=== PATIENT | female | born 1990 | race Two or more races ===

== ENCOUNTER 2020-12-15 16:41 | Emergency (ER) | payer MEDICAID, SELFPAY ==
--- NOTE | ~2020-12-15 | XR_ITS ---
EXAMINATION: XR CHEST CLINICAL INFORMATION: Chest pain. COMPARISON: None TECHNIQUE: AP view of the chest was obtained. FINDINGS: Normal appearance of the cardiomediastinal silhouette. No focal airspace opacities, pleural effusions or pneumothorax. No acute osseous findings. XR/XR chest 1V IMPRESSION: No acute cardiopulmonary findings.
--- NOTE | 2020-12-15 16:53 | ECG_ITS ---
Test Reason : CHESTPRESS Blood Pressure : / mmHG Vent. Rate : 073 BPM Atrial Rate : 073 BPM P-R Int : 168 ms QRS Dur : 082 ms QT Int : 374 ms P-R-T Axes : 045 031 025 degrees QTc Int : 412 ms Normal sinus rhythm with sinus arrhythmia Normal ECG No previous ECGs available Referred By: Generic ED Physician Electronically Signed By:MARIA A COTTO
[2020-12-15 18:10] LABS: COVID-19 Test Negative (Negative)
[2020-12-15 18:27] VITALS: BP 122/62; PULSE 72; RESP 16; TEMP 36; O2SAT 98
[2020-12-15 18:28] VITALS: BMI 33.3
--- NOTE | 2020-12-15 18:40 | ED_ITS ---
HPI - URI/Sore Throat General Chief Complaint: Upper Respiratory Symptoms Stated Complaint: cp Time Seen by Provider: 12/15/20 18:40 History of Present Illness HPI Narrative: Patient is 30 years old presents today with having coughing congestion upper respiratory symptoms that been ongoing for about 5 days. Coughing with some mild chest pain worse with cough. Worse with movement. There is no diaphoresis. No leg swelling. Patient received her COVID vaccine back in July. Had 2 shots. No smoking. No diaphoresis. Patient from home. No weight loss. Related Data Previous Rx's Medication Instructions Recorded azithromycin 250 mg tablet See Rx Instructions .ROUTE 12/15/20 .COMPLEX #6 tab benzonatate 100 mg capsule 100 mg PO TID #20 cap 12/15/20 (Tesbrent Alonso) Allergies Allergy/AdvReac Type Severity Reaction Status Date / Time fluconazole [From Diflucan] Allergy Swelling Verified 12/15/20 18:27 Review of Systems Review of Systems: Positive coughing congestion upper respiratory symptoms Positive generalized malaise Yes all other systems are reviewed and are neg ative [facility] Past Medical History Attestation statement: The following information was validated with the patient. Social History Social History Advance Directives: No Advance Directives Information Provided: No Patient : No Physical Exam Vital Signs: Vital Signs: Last Vital Signs Temp 96.8 F 12/15/20 18:27 Pulse 72 12/15/20 18:27 Resp 16 12/15/20 18:27 BP 122/62 12/15/20 18:27 Pulse Ox 98 12/15/20 18:27 Body Mass Index 33.3 Appearance: Alert. Oriented X3. No acute distress. Eyes: Pupils equal, round and reactive to light. ENT: Pharynx normal. Neck: Normal inspection. Neck supple. No lymph nodes noted. No crepitus CVS: Normal heart rate and rhythm. Pulses normal. Normal S1 and S2 Respiratory: No respiratory distress. Breath sounds normal. No Wheezing. No rales Abdomen: Soft and nontender. No rigidity. No distention. good BS x4 Skin: Skin warm and dry. Normal skin color. Normal skin turgor. Extremities: No lower extremity edema. Neurovascular intact to all extremities. No Lacerations. No Rash Neuro: Oriented X 3. No motor deficit. No sensory deficit. Moving all extermities. No slurred speech MDM - URI/Sore Throat MDM Narrative Medical decision making narrative: O2 sats normal patient is well appearing no distress. Chest x-ray showed no focal infiltrate. COVID test was negative. Will give a Z-Chuckie will have patient follow-up on an outpatient basis. She is in stable condition. Medical Records Attestation: I reviewed the patient's medical records. Lab Data Attestation: I reviewed the patient's lab results. Labs: Lab Results 12/15/20 Range/Units 17:51 COVID-19 (ANGELA) Negative (Negative) COVID-19 Clin Com See Note Discharge Plan Discharge Clinical Impression: Upper respiratory infection Patient Disposition: Home, Self-Care Instructions: Upper Respiratory Infection (ED) Prescriptions: New azithromycin 250 mg tablet See Rx Instructions .ROUTE .COMPLEX Qty: 6 RF: 0 benzonatate [Tessalon Perles] 100 mg capsule 100 mg PO TID Qty: 20 RF: 0 Referrals: Lisseth Arora MD [Primary Care Provider] - 2 days
== END 2020-12-15 19:00 | disposition home or self-care (01) ==
PROVIDERS: Emergency Provider Emergency Medicine Emergency Medical Services; PCP Internal Medicine
DX: J06.9 Acute upper respiratory infection, unspecified (principal); R05.9 Cough, unspecified; Z20.822 Contact with and (suspected) exposure to COVID-19
CPT/HCPCS: 36415; 71045; 87635; 93005; 99283

== ENCOUNTER 2024-12-31 02:41 | Emergency (ER) | payer MEDICAID, SELFPAY ==
--- NOTE | 2024-12-31 | ECG_ITS ---
Test Reason : CP Blood Pressure : */* mmHG Vent. Rate : 62 BPM Atrial Rate : 62 BPM P-R Int : 170 ms QRS Dur : 86 ms QT Int : 396 ms P-R-T Axes : 50 39 36 degrees QTcB Int : 401 ms Normal sinus rhythm Normal ECG When compared with ECG of 15-Dec-2020 17:21, No significant change was found Referred By: Generic ED Physician Electronically Signed By: Maximiliano Carrillo
--- NOTE | ~2024-12-31 | XR_ITS ---
CLINICAL HISTORY: SOB 1 view chest x-ray Comparison: None provided Findings: Portions of the exam are obscured by overlying material. No consolidation or effusion. Normal size heart. No acute fracture. IMPRESSION: 1. No acute findings. This document has been electronically signed by: Jalen Reyes MD on 12/31/2024 03:52:26
[2024-12-31 02:46] VITALS: BMI 32.6
--- OUTSIDE RECORDS SUMMARY | 2024-12-31 02:52 | XMS_ITS ---
[facility] Name [facility] Organization Unknown Results Test Name/Text Value Interpretation Date Range Source Potassium SerPl-sCnc 4.2 mmol/L 10/03/2024 3.5 - 5.1 [facility] BUN SerPl-mCnc 17.0 mg/dL 10/03/2024 7 - 17 [facility]_ [facility] Glucose SerPl-mCnc 87.0 mg/dL 10/03/2024 70 - 99 [facility] Chloride SerPl-sCnc 106.0 mmol/L 10/03/2024 98 - 1 07 [facility] eGFRcr SerPlBld CKD-EPI 2020 76.0 mL/min/1.73m2 10/03/2024 - [facility] Creat SerPl-mCnc 1.0 mg/dL 10/03/2024 0.5 - 1 CT _[facility] BUN/Creat SerPl 17.0 10/03/2024 12 - 20 [facility] Sodium SerPl-sCnc 138.0 mmol/L 10/03/2024 135 - 14 5 [facility] CO2 SerPl-sCnc 25.0 mmol/L 10/03/2024 24 - 32 CT _[facility] Anion Gap SerPl Calc-sCnc 7.0 10/03/2024 5 - 14 [facility] Calcium SerPl-mCnc 9.2 mg/dL 10/03/2024 8.4 - 10.2 [facility] Est. average glucose Bld gHb Est-mCnc 111.0 mg/dL 07/21/2024 [facility] HbA1c MFr Bld 5.5 % 07/21/2024 - 5.7 [facility] VLDLc SerPl Calc-mCnc 16.8 mg/dL 07/21/2024 [facility] LDLc SerPl Calc-mCnc 81.0 mg/dL 07/21/2024 50 - 130 [facility] HDLc SerPl-mCnc 42.0 mg/dL 07/21/2024 35 - 80 CT _[facility] Trigl SerPl-mCnc 84.0 mg/dL 07/21/2024 - 150 C T_[facility] Cholest SerPl-mCnc 140.0 mg/dL 07/21/2024 0 - 200 [facility] eGFRcr SerPlBld CKD-EPI 2020 69.0 mL/min/1.73m2 07/21/2024 - [facility] Prot SerPl-mCnc 7.0 g/dL 07/21/2024 6.4 - 8.5 CT_ [facility] BUN/Creat SerPl 15.5 07/21/2024 12 - 20 [facility] Bilirub SerPl-mCnc 0.3 mg/dL 07/21/2024 0.3 - 1 [facility] CO2 SerPl-sCnc 26.0 mmol/L 07/21/2024 24 - 32 CT _[facility] ALT SerPl-cCnc 16.0 unit/L 07/21/2024 7 - 52 CT _[facility] Albumin SerPl-mCnc 4.0 g/dL 07/21/2024 3.5 - 5 [facility] AST SerPl-cCnc 16.0 unit/L 07/21/2024 5 - 40 CT _[facility] Glucose SerPl-mCnc 92.0 mg/dL 07/21/2024 70 - 99 [facility] Potassium SerPl-sCnc 3.9 mmol/L 07/21/2024 3.5 - 5.1 [facility] Sodium SerPl-sCnc 137.0 mmol/L 07/21/2024 135 - 14 5 [facility] BUN SerPl-mCnc 17.0 mg/dL 07/21/2024 7 - 17 [facility]_ [facility] Calcium SerPl-mCnc 9.0 mg/dL 07/21/2024 8.4 - 10.2 [facility] Chloride SerPl-sCnc 104.0 mmol/L 07/21/2024 98 - 1 07 [facility] Anion Gap SerPl Calc-sCnc 7.0 07/21/2024 5 - 14 [facility] Creat SerPl-mCnc 1.1 mg/dL Above high normal 07/21/2024 0.5 - 1 [facility] ALP SerPl-cCnc 79.0 unit/L 07/21/2024 34 - 104 CT _[facility] Hgb Bld-mCnc 14.2 g/dL 07/21/2024 12.5 - 16 [facility] ESHA RBC # Bld Auto 4.87 M/mcL 07/21/2024 4.2 - 5.4 CT_ [facility] Basophils # Bld Auto 0.0 K/mcL 07/21/2024 0 - 0.2 [facility] Basophils NFr Bld Auto 0.3 % 07/21/2024 0 - 2 [facility] Neutrophils NFr Bld Auto 55.7 % 07/21/2024 44 - 74 [facility] Eosinophil # Bld Auto 0.1 K/mcL 07/21/2024 0 - 0.5 [facility] Hct VFr Bld Auto 43.3 % 07/21/2024 37 - 47 CT _[facility] MCHC RBC Auto-EntMCnc 32.9 g/dL 07/21/2024 32 - 36 [facility] Eosinophil NFr Bld Auto 1.0 % 07/21/2024 0 - 6 [facility] Platelet # Bld Auto 208.0 K/mcL 07/21/2024 150 - 4 50 [facility] RDW RBC Auto 14.1 % 07/21/2024 12.1 - 16.2 [facility] Monocytes NFr Bld Auto 10.4 % 07/21/2024 2 - 12 [facility] Lymphocytes NFr Bld Auto 32.6 % 07/21/2024 20 - 48 [facility] Neutrophils # Bld Auto 3.6 K/mcL 07/21/2024 1.8 - 7.8 [facility] Lymphocytes # Bld Auto 2.1 K/mcL 07/21/2024 1 - 3.2 [facility] MCH RBC Qn Auto 29.2 pcg 07/21/2024 25 - 33 [facility]_ [facility] PMV Bld Auto 9.3 FL 07/21/2024 7.4 - 11.4 [facility] Monocytes # Bld Auto 0.7 K/mcL 07/21/2024 0 - 0.8 [facility] RBC Auto 88.8 FL 07/21/2024 78 - 100 [facility] N WBC # Bld Auto 6.4 K/mcL 07/21/2024 4 - 10.5 CT_T [facility] Color Ur Yellow 07/20/2024 - [facility] N Hgb Ur Ql Negative 07/20/2024 - [facility] N Clarity Ur Clear 07/20/2024 - [facility] AN Leukocyte esterase Ur Ql Strip Negative 07/20/2024 - [facility] Sp Gr Ur 1.024 07/20/2024 1.005 - 1.03 [facility] Prot Ur Strip-mCnc Negative 07/20/2024 - [facility] Glucose Ur Ql Negative 07/20/2024 - [facility] pH Ur 5.0 pH Abnormal 07/20/2024 5 - 8 [facility] N Ketones Ur-mCnc Negative 07/20/2024 - CT_ [facility] Nitrite Ur Ql Negative 07/20/2024 - [facility] ALT SERPL CCNC 39.0 U/L Normal 06/01/2023 7 - 52 [facility] HCO3 SER SCNC 27.0 mmol/L Normal 06/01/2023 24 - 32 [facility] ANION GAP SERPL SCNC 8.0 mmol/L Normal 06/01/2023 5 - 14 [facility] BILIRUB SERPL MCNC 0.4 mg/dL Normal 06/01/2023 0.3 - 1 [facility] CREAT SERPL MCNC 0.9 mg/dL Normal 06/01/2023 0.5 - 1 CT [facility] ALP SERPL-CCNC 93.0 U/L Normal 06/01/2023 34 - 104 [facility] ALBUMIN SERPL BCG MCNC 4.5 g/dL Normal 06/01/2023 3.5 - 5 [facility] AST SERPL CCNC 30.0 U/L Normal 06/01/2023 5 - 40 [facility] BUN SERPL MCNC 17.0 mg/dL Normal 06/01/2023 7 - 17 [facility] POTASSIUM SERPL SCNC 3.9 mmol/L Normal 06/01/2023 3[facility]5 [facility] Glomerular filtration rate/1.73 sq M. predicted 88.0 Normal 06/01/2023 60 - [facility] GLUCOSE P FAST SERPL MCNC 93.0 mg/dL Normal 06/01/2023 70 - 99 [facility] CALCIUM SERPL MCNC 9.3 mg/dL Normal 06/01/2023 8.4 - 10.2 [facility] SODIUM SERPL SCNC 138.0 mmol/L Normal 06/01/2023 135 - 14 5 [facility] CHLORIDE SERPL SCNC 103.0 mmol/L Normal 06/01/2023 98 - 1 07 [facility] PROT SERPL MCNC 7.3 g/dL Normal 06/01/2023 6.4 - 8.5 [facility] DIFFERENTIAL TYPE AUTOMATED Normal 06/01/2023 C [facility] WBC NO. BLD AUTO 4.6 K/uL Normal 06/01/2023 4 - 10.5 CT [facility] MCV RBC AUTO 86.7 fL Normal 06/01/2023 78 - 100 [facility] H EOSINOPHIL NFR BLD AUTO 1.2 % Normal 06/01/2023 0 - 6 [facility] NEUTROPHILS NO. BLD AUTO 2.5 K/uL Normal 06/01/2023 1.8 - 7.8 [facility] HGB BLD MCNC 14.1 g/dL Normal 06/01/2023 12.5 - 16 CT[facility] H RDW RBC AUTO RTO 14.2 % Normal 06/01/2023 12.1 - 16.2 [facility] PMV BLD AUTO 9.5 fL Normal 06/01/2023 7.4 - 11.[address] MCH[facility] RBC AUTO MCNC 34.4 g/dL Normal 06/01/2023 32 - 36 [facility] BASOPHILS NFR BLD AUTO 0.3 % Normal 06/01/2023 0 - 2 [facility] EOSINOPHIL NO. BLD AUTO 0.1 K/uL Normal 06/01/2023 0 - 0.5 [facility] NEUTROPHILS NFR BLD AUTO 55.0 % Normal 06/01/2023 44 - 74 [facility] HCT VFR BLD AUTO 40.9 % Normal 06/01/2023 37 - 47 [facility] PLATELET NO. BLD AUTO 213.0 K/uL Normal 06/01/2023 150 - 450 [facility] MONOCYTES NO. BLD AUTO 0.4 K/uL Normal 06/01/2023 0 - 0.8 [facility] BASOPHILS IN BLOOD BY AUTOMATED COUNT 0.0 K/uL Normal 06/01/2023 0 - 0.2 [facility] MONOCYTES NFR BLD AUTO 7.7 % Normal 06/01/2023 2 - 12 [facility] LYMPHOCYTES NFR BLD AUTO 35.8 % Normal 06/01/2023 20 - 48 [facility] MCH RBC QN AUTO 29.8 pg Normal 06/01/2023 25 - 33 CTT HS LYMPHOCYTES NO. BLD AUTO 1.7 K/uL Normal 06/01/2023 1 - 3.2 [facility] RBC NO. BLD AUTO 4.72 M/uL Normal 06/01/2023 4.2 - 5.4 CT [facility] Hgb A1c MFr Bld HPLC 5.3 % Normal 06/01/2023 - 5.7 [facility] LDLc SerPl Calc-mCnc 106.0 mg/dL Normal 06/01/2023 50 - 130 [facility] CHOLEST SERPL-MCNC 170.0 mg/dL Normal 06/01/2023 0 - 200 [facility] TRIGL SERPL-MCNC 80.0 mg/dL Normal 06/01/2023 - 150 [facility] HDLC SERPL-MCNC 48.0 mg/dL Normal 06/01/2023 35 - [facility] of Medication Use Medication Directions Dispensed Refills Start Date End Date Status oxyBUTYnin (DITROPAN) 5 mg tablet Take 1 tablet (5 mg total) by mouth 1 (one) time each day. 5 active ondansetron (Zofran) 4 MG tablet Take 1 tablet (4 mg total) by mouth every 8 (eight) hours as needed for nausea. 4 active SUMAtriptan (Imitrex) 50 MG tablet Take 1 tablet (50 mg total) by mouth once as needed for migraine. Can take an additional 50 mg 2 hours later if headache has not improved. DO NOT EXCEED 100 mg in 24 hours 4 active ketorolac (TORADOL) injection 30 mg 4 10/24/19 24 completed metoCLOPRAMIDE (REGLAN) injection 10 mg 10 mg, Intravenous, Once, On 10/24/23 at 1730, For 1 dose, If administering IV push, dilute with 10 mL of NS give over 2 minutes. 4 10/24/19 24 completed diclofenac (VOLTAREN) 1 % topical gel Apply 1-2 g topically 2 times daily as needed. 4 active Diclofenac Sodium (Voltaren Arthritis Pain) 1 % GEL Apply 1-2 g topically 2 (two) times a day as needed. 4 active fluticasone (FloNASE) 50 mcg/spray nasal spray 1 spray into each nostril daily. 4 active loratadine-pseudoeph edrine (CLARITIN-D 12-hour) 5-120 MG per 12 hr tablet Take 1 tablet by mouth 2 (two) times a day. 4 active fluticasone (FLONASE) 50 MCG/ACT nasal spray SPRAY/APPLY 1 SPRAY IN EACH NOSTRIL DAILY. 3 active fluticasone (FLONASE) 50 MCG/ACT nasal spray SPRAY/APPLY 1 SPRAY IN EACH NOSTRIL DAILY. 3 active fluticasone propionate (FLONASE) 50 mcg/actuation nasal spray 1 spray. 3 active azelastine (ASTELIN) 0.1 % nasal spray spray or apply 2 sprays inside Nose 2 (two) times a day. Use in each nostril as directed 3 08/25/19 24 active azelastine (ASTELIN) 0.1 % nasal spray spray or apply 2 sprays inside Nose 2 (two) times a day. Use in each nostril as directed 3 08/25/19 24 active amoxicillin-clavulan ate (AUGMENTIN) 875-125 MG per tablet Take 1 tablet by mouth 2 (two) times a day. 3 11/21/19 25 active amoxicillin (AMOXIL) 500 MG capsule Take 1 capsule (500 mg total) by mouth 2 (two) times a day. 3 05/31/19 23 aborted PANTOprazole (PROTONIX) 40 MG EC tablet Take 40 mg by mouth daily. 3 03/25/19 24 active albuterol (PROAIR RESPICLICK) 108 (90 Base) MCG/ACT inhaler Inhale 4 (four) times a day as needed. 2 active predniSONE (DELTASONE) 20 MG tablet Take 2 tablets (40 mg total) by mouth daily. With food. 2 01/11/20 22 active cyclobenzaprine (FLEXERIL) 10 MG tablet Take 1 tablet (10 mg total) by mouth every night at bedtime as needed for muscle spasms (upper back pain). 2 06/01/19 24 active cyclobenzaprine (FLEXERIL) 10 MG tablet Take 1 tablet (10 mg total) by mouth every night at bedtime as needed for muscle spasms (upper back pain). 2 06/01/19 24 active cyclobenzaprine (FLEXERIL) 10 MG tablet Take 10 mg by mouth. 2 active ibuprofen (MOTRIN) 600 MG tablet Take 1 tablet by mouth 3 (three) times a day with meals. 2 active cyclobenzaprine (FLEXERIL) 10 mg tablet Take 1 tablet (10 mg total) by mouth. 1 active fluticasone propionateTake 2 spray(s) (nasal) 1 time per day for 30 days (2 sprays in each nostril, once each day)[id number] spension1 time per [id number] pps63hja/actuation 1 suspended TumericTakeNo date recordedNo form recordedNo frequency recordedNo route recordedNo set duration recordedNo set duration amount recordedactiveNo dosage strength recordedNo dosage strength units of measure recorded active magnesium oxide (MAG-OX) 400 MG tablet Take 400 mg by mouth. active ondansetron (ZOFRAN) 4 mg tablet Take 1 tablet (4 mg total) by mouth every 8 (eight) hours if needed for nausea or vomiting. active oxybutynin (DITROPAN) 5 mg tablet Take 5 mg by mouth. activ e potassium chloride (KLOR-CON M20) 20 mEq CR tablet Take 1 tablet (20 mEq total) by mouth 1 (one) time each day. Tablet may be swallowed whole (do not crush/chew/suck on) OR broken in half and each half swallowed separately OR dissolved (whole tablet) in ~4 ounces of water (allow ~2 minutes to dissolve, stir well and administer immediately). active riboflavin (VITAMIN B-2) 100 MG tablet Take 100 mg by mouth. active SUMAtriptan (IMITREX) 50 mg tablet Take 1 tablet (50 mg total) by mouth 1 (one) time if needed for migraine. May repeat dose once in 2 hours if no relief. Do not exceed 2 doses in 24 hours. active tirzepatide (MOUNJARO) 2.5 mg/0.5 mL pen-injector Inject 2.5 mg under the skin once a week. active tirzepatide 5 mg/0.2 mL syringe Inject under the skin. active TURMERIC ORAL Take 2,000 mg by mouth. active Allergies Allergen Reaction Severity Comment Documented Date Source Status DOXYCYCLINE UNKNOWN/PATIENT AND FAMILY UNABLE TO DEFINEOTHER (SEE COMMENTS) swollen lip 05/30/2022 [facility] active POLLEN EXTRACT HIVES 08/09/2020 [facility] active POLLEN EXTRACTS 08/09/2020 [facility] N active SEASONAL 08/09/2020 [facility] active FLUCONAZOLE SWELLINGSWELLINGSWELLING Swo llen lip 05/29/2015 [facility] active Problems Problem Status Onset Date Problem Type Date of Resolution Source Fibromyalgia active 2021-11-03 ProblemAct [facility] Nausea active EncounterDiagnosisAct [facility] COVID-19 active 2023-04-03 ProblemAct [facility] Periodic headache syndrome, not intractable active 2023-11-03 ProblemAct [facility] Acute bacterial sinusitis active EncounterDiagnosisAct [facility] Obesity (BMI 35.0-39.9 without comorbidity) active 2021-11-03 ProblemAct [facility] Migraine active 2015-05-29 ProblemAct [facility] Gastroesophageal reflux disease without esophagitis active 2022-03-24 ProblemAct [facility] Fatty liver active 2022-03-24 ProblemAct [facility] ESHA Achilles tendinitis of left lower extremity active 2023-07-14 ProblemAct [facility] Fibromyalgia active 2017-03-23 ProblemAct [facility] Hyperhidrosis active 2017-02-01 ProblemAct [facility] Upper back pain active 2021-11-[address] [facility] Elevated serum creatinine active 2024-10-03 ProblemAct [facility] Urinary frequency active 2024-08-14 ProblemAct [facility] Hemangioma of liver active 2022-03-24 ProblemAct [facility] Elevated antinuclear antibody (KRISTIN) level active 2017-02-02 ProblemAct [facility] RAN Immunizations Vaccine Date Source Lot Number Status Influenza Quadrivalent, 0.5m l, preservative free (Fluarix; FluLaval; Fluzone) ages 6mo and older (Afluria) 3yo and older 04/07/2022 [facility] [id number] completed PPD Test 07/29/2021 [facility] [id number] completed Kaizena SARS-CoV-2 COVID-19, mRNA, LNP-S, preservative free 04/07/2021 [facility] [id number] completed Influenza Quadravalent, MDCK , 0.5ml, preservative free (Flucelvax) 6mo and older 12/06/2020 [facility] [id number] completed Kaizena SARS-CoV-2 COVID-19, mRNA, LNP-S, preservative free 07/20/2020 [facility] [id number] completed Influenza Quadravalent, MDCK , 0.5ml, with preservative (Flucelvax) 6mo and older 01/08/2020 [facility] [id number] 0 completed Hepatitis B (Pediatric / Ado lescent) (inactive) 07/04/2018 [facility] [id number] completed Hepatitis B Pediatric (Enger ix B; Recombivax HB) to less than 20 yo 07/04/2018 [facility] 29[facility]7 completed Tdap Tetanus diptheria acell ular pertussis (Boostrix; Adacel) 7yo and older 02/11/2017 [facility] [id number] completed TB Skin Test (TST-PPD) 02/03/2017 [facility] co mpleted Hepatitis B (Viuqjwq-W-Rhwiw , Recombivax HB-Adult) 19yo and older 02/01/2017 [facility] [id number] complet ed HPV 9-valent (Gardisil) 9yo to less than 46yo 02/01/2017 [facility] [id number] completed PPD Test 02/01/2017 [facility] [id number] completed Measles 01/28/2017 [facility] completed MMR, measles mumps and rubel la Live (Priorix; M-M-R II) 12mo and older 01/28/2017 [facility] completed Mumps 01/28/2017 [facility] completed Rubella 01/28/2017 [facility] completed Varicella live (Varivax) 12mo and older 01/28/2017 [facility] RAN completed TB Skin Test (TST-PPD) 05/31/2015 [facility] co mpleted PPD Test 05/29/2015 [facility] [id number] completed HPV, Quadrivalent 11/18/2012 [facility] complet ed Encounters Encounter Type Encounter Reason Primary Diagnosis Location Date Ambulatory sinus congestion [facility] [employer] 11/09/2024 Ambulatory Follow-up Frequency of micturition [facility] [place] [place]03/2024 Ambulatory [facility] 08/14/2024 Ambulatory Annual Exam Encounter for ge neral adult medical examination without abnormal findings [facility] 07/20/2024 Ambulatory Encounter for screening for COVID-19 Encounter for screening for COVID-19 [employer] 10/24/2023 Ambulatory 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 12/23/2022 Ambulatory Chronic sinusiti s, unspecified [employer] 05/30/2022 Ambulatory Streptococcal pharyngitis [place] [facility] 04/18/2022 Ambulatory Obesity, unspecified [facility] 04/13/2022 Ambulatory Acute sinusitis, unspecified [place] [facility] [facility] 01/04/2022 Ambulatory COVID-19 [facility] [employer] 03/10/2021 Care Team Organization Name Specialty Phone Email Start Date End Da te [employer] Primary Care 11/09/2024 12/08/2024 [facility] 07/26/2024 [facility] Primary Care 07/20/2024 [facility] Primary [facility] 07/20/2024 [place] [facility] 07/13/2023 [facility] Primary Care 06/03/2023 [facility] Primary Care 06/01/2023 09/26/2024 [facility] Not Found Primary Care 04/04/2023 [facility] Primary Care 04/04/2023 09/24/2024 [facility]SOL Primary Care 03/16/2023 09/2 08/2024 [facility] Primary Care 03/16/202304/2023 [facility] 12/23/202206/16 [facility] 12/23/202212/23 [facility] 01/14/2022 [facility] PCP,No Primary Care 01/04/2022 12/08/2024 [facility] NO PCP Primary Care 01/04/2022 01/04/2022
--- OUTSIDE RECORDS SUMMARY | 2024-12-31 02:52 | XMS_ITS | Encounter Summary ---
Author Organization [facility] Address [address] [place] [address] Care Team Providers Care Back Shoe Worker Name Role Phone Sol Atwood MD Primary Care Provider [phone] Encounter Details Date Type Department Care Team (Late st Contact Info) Description 10/24/2023 Scanned Document [address] [place] [phone] Provider, Generic Social History Tobacco Use Types Packs/Day Years Used Date Smoking Tobacco: Never Smokeless Tobacco: Never Alcohol Use Standard Drinks/Week Comments Yes 0 (1 standard drink = 0.6 oz pur e alcohol) socially Comments Unknown Sex and Gender Information Value Date Recorded Sex Assigned at Not on file Legal Sex Female 5:09 PM EST Gender Identity Not on file Sexual Orientation Not on file documented as of this encounter Plan of Treatment Not on file documented as of this encounter Visit Diagnoses Not on filedocumented in this encounter Care Teams Back Shoe Worker Relationship Specialty Start Date End Date Sol Atwood MD PCP - General Family Medicine 03/16/23 documented as of this encounter
--- OUTSIDE RECORDS SUMMARY | 2024-12-31 02:52 | XMS_ITS | Encounter Summary ---
Author Organization [facility] Address [address] [place] [address] Care Team Providers Care Dust Collector Ore Crushing Name Role Phone Sol Atwood MD Primary Care Provider [phone] Encounter Details Date Type Department Care Team (Late st Contact Info) Description 10/24/2023 Scanned Document [address] [place] [phone] Provider, Generic Social History Tobacco Use [...] on filedocumented in this encounter Care Teams Dust Collector Ore Crushing Relationship Specialty Start Date End Date Sol Atwood MD PCP - General Family Medicine 03/16/23 documented as of this encounter
--- OUTSIDE RECORDS SUMMARY | 2024-12-31 02:52 | XMS_ITS | Clinical Summary ---
Author Organization [facility] Address [address] [place] [address] Care Team Providers Care Meter Record Clerk Name Role Phone Sol Atwood MD Primary Care Provider Unav ailable Allergies Active Allergy Reactions Criticality Noted Date Comments Doxycycline Other (See Comments) Medium 06/01/2021 swollen lip swollen lip Seasonal 08/09/2020 Medications Medication Sig Dispensed Refills Start Date End Date Status fluticasone (FLONASE) 50 MCG/ACT nasal spray SPRAY/APPLY 1 SPRAY IN EACH NOSTRIL DAILY. 16 mL 0 12/14/2022 Active cyclobenzaprine (FLEXERIL) 10 MG tablet Take 1 tablet (10 mg total) by mouth every night at bedtime as needed for muscle spasms (upper back pain). 30 tablet 0 06/01/2023 Active Diclofenac Sodium (Voltaren Arthritis Pain) 1 % GEL Apply 1-2 g topically 2 (two) times a day as needed. 50 g 1 07/14/2023 Active ondansetron (Zofran) 4 MG tablet Take 1 tablet (4 mg total) by mouth every 8 (eight) hours as needed for nausea. 30 tablet 0 11/03/2023 Active Active Problems Problem Noted Date Diagnosed Date Periodic headache syndrome, not intractable 10/14 Achilles tendinitis of left lower extremity 03/2023 Fatty liver 03/24/2022 Gastroesophageal reflux disease without esophagi tis 03/24/2022 Hemangioma of liver 03/24/2022 Fibromyalgia 11/03/2021 Upper back pain 11/03/2021 Obesity (BMI 35.0-39.9 without comorbidity) 10/14 Immunizations Name Administration Dates Next Due HPV 9 Valent 02/01/2017 HPV Quadrivalent 11/18/2012 Hepatitis B (Adult 3 dose)/( Adolescent 2 dose) Engerix 02/01/2017 Hepatitis B (Pediatric / Ado lescent) (inactive) 07/04/2018 Influenza Quad (Fluarix/Fluz one/FluLaval) 0.5mL (SD-IIV4) 04/07/2022 Influenza Quad (Flucelvax) 0 .5mL >6mon (ccIIV4) 12/06/2020 Influenza Quad (Flucelvax) 0 .5mL >6mon Vial (ccIIV4) 01/08/2020 MMR 01/28/2017 TB Skin Test (TST-PPD) 07/29/2021,02/03/2017, Tdap 02/11/2017 Varicella 01/28/2017 Family History Medical History Relation Name Comments Diabetes Father Cancer Maternal Aunt Breast CA Hypertension Mother Relation Name Status Comments Father Maternal Aunt Mother Social History Tobacco Use Types Packs/Day Years Used Date Smoking Tobacco: Never Smokeless Tobacco: Never Alcohol Use Standard Drinks/Week Comments Yes 0 (1 standard drink = 0.6 oz pur e alcohol) occasionally Sex and Gender Information Value Date Recorded Sex Assigned at Female 06/01/2021 10:07 PM EDT Gender Identity Female 06/01/2021 10:07 PM EDT Sexual Orientation Not on file Job Start Date Occupation Industry Not on file Not on file Not on file Last Filed Vital Signs Vital Sign Reading Time Taken Comments Blood Pressure 100/65 11/03/2023 8:33 AM EDT Pulse 67 11/03/2023 8:33 AM EDT Temperature 36.6 C (97.9 F) 11/03/2023 8:33 AM EDT Respiratory Rate 18 03/23/2022 4:28 PM EST Oxygen Saturation 98% 11/03/2023 8:33 AM EDT Inhaled Oxygen Concentration - - Weight 100.2 kg (221 lb) 11/03/2023 8:33 AM EDT Height 165.1 cm (5' 5 ) 07/14/2023 10:02 AM EDT Body Mass Index 36.78 07/14/2023 10:02 AM EDT Plan of Treatment Health Maintenance Due Date Last Done Comments Hepatitis C Screening 1991 Pneumococcal Vaccine (1 of 2 - PCV) 07/27/1997 Hepatitis B Vaccines (3 of 3 - 19+ 3-dose series) 08/29/2018 07/04/2018, 02/01/2017 BMI Counseling 04/07/2023 04/07/2022, 03/15, 01/12/2022, Additional history exists Depression Screening 07/13/2024 07/14/2023, 06/07/19 Preventative Health Evaluation 07/13/2024 07/14/2023, 07/08/2022, 07/08/2022 COVID-19 Vaccine (3 - 2024- season) 2024 04/07/2021, 07/20/2020 Influenza Vaccine (#1) 2024 , 12/06/2020, 01/08/2020 Cervical Cancer Screening (Pap Smear) 12/23/2025 12/23/2022 DTap / Tdap / Td (2 - Td or Tdap) 02/11/2027 02/11/2017 RSV Ped < 20 months Aged Out No longe r eligible based on patient's age to complete this topic Care Teams Meter Record Clerk Relationship Specialty Start Date End Date Sol Atwood MD PCP - General Internal Medicine 06/13/21
--- OUTSIDE RECORDS SUMMARY | 2024-12-31 02:52 | XMS_ITS | Clinical Summary ---
Author Organization [facility] Address [address] [place] [id number] Care Team Providers Care Making Department Preparer Name Role Phone Sol Atwood MD Primary Care Provider Allergies Active Allergy Reactions Criticality Noted Date Comments Fluconazole Rash/Dermatitis,Swelling Medium 05/29/2015 Swollen lip Other reaction(s): Rash/Dermatitis Swollen lip Swollen lip Pollen Extract Hives Medium 08/09/2020 Medications predniSONE (DELTASONE) 20 MG tabletIndication s:Acute non-recurrent sinusitis, unspecified location,Shortne ss of breath Take 2 tablets (40 mg total) by mouth daily. With food. 10 tablet 2 Active Additional Information Patient not taking.Reported on 11/09/2024 albuterol (PROAIR RESPICLICK) 108 (90 Base) MCG/ACT inhaler Inhale 4 (four) times a day as needed. 2 Active cyclobenzaprine (FLEXERIL) 10 MG tablet Take 10 mg by mouth. 2 Active ibuprofen (MOTRIN) 600 MG tablet Take 1 tablet by mouth 3 (three) times a day with meals. 2 Active magnesium oxide (MAG-OX) 400 MG tablet Take 400 mg by mouth. Active PANTOprazole (PROTONIX) 40 MG EC tablet Take 40 mg by mouth daily. 3 Active riboflavin (VITAMIN B-2) 100 MG tablet Take 100 mg by mouth. Active loratadine-pseud oephedrine (CLARITIN-D 12-hour) 5-120 MG per 12 hr tabletIndication s:Viral sinusitis Take 1 tablet by mouth 2 (two) times a day. 60 tablet 4 Active Additional Information Patient not taking.Reported on 11/09/2024 oxybutynin (DITROPAN) 5 mg tablet Take 5 mg by mouth. Active tirzepatide (MOUNJARO) 2.5 mg/0.5 mL pen-injector Inject 2.5 mg under the skin once a week. Active amoxicillin-clav ulanate (AUGMENTIN) 875-125 MG per tabletIndication s:Acute bacterial sinusitis Take 1 tablet by mouth 2 (two) times a day. 20 tablet Active fluticasone (FloNASE) 50 mcg/spray nasal sprayIndications :Acute bacterial sinusitis 1 spray into each nostril daily. 1 each Active Active Problems No known active problems Encounters Date Type Department Care Team Description 11/09/2024 6:50 PM EDT Office Visit [facility] [address] [place] [phone] Sorin Blackburn MD Raye-Mattero, Jennifer, PA-C Acute bacterial sinusitis (Primary Dx) 11/09/2024 Travel from Last 3 Months Social History Tobacco Use Types Packs/Day Years Used Date Smoking Tobacco: Never Smokeless Tobacco: Never Tobacco Cessation:Counseling Given: Not Answered Alcohol Use Standard Drinks/Week Comments Yes 0 (1 standard drink = 0.6 oz pur e alcohol) socially Comments Unknown Sex and Gender Information Value Date Recorded Sex Assigned at Not on file Legal Sex Female 5:09 PM EST Gender Identity Not on file Sexual Orientation Not on file Last Filed Vital Signs Vital Sign Reading Time Taken Comments Blood Pressure 110/76 11/09/2024 6:58 PM EDT Pulse 85 11/09/2024 6:58 PM EDT Temperature 37.2 C (98.9 F) 11/09/2024 6:58 PM EDT Respiratory Rate 18 11/09/2024 6:58 PM EDT Oxygen Saturation 98% 11/09/2024 6:58 PM EDT Inhaled Oxygen Concentration - - Weight 89.8 kg (198 lb) 11/09/2024 6:58 PM EDT Height 165.1 cm (5' 5 ) 11/09/2024 6:58 PM EDT Body Mass Index 32.95 11/09/2024 6:58 PM EDT Plan of Treatment Health Maintenance Due Date Last Done Comments Hepatitis C Virus Screening 1991 HIV Screening 07/27/2004 DTaP/Tdap/Td Vaccines (1 - Tdap) 07/27/2010 Hepatitis B Vaccines (1 of 3 - 19+ 3-dose series) 07/27/2010 Influenza Vaccine 10/13/2024 04/07/2022, 12/06/2020 COVID-19 Vaccine (3 - 2024-2 6 season) 2024 04/07/2021, 07/20/2020 Pap Smear (Ages 21-65) 12/23/2025 12/23/2022 HPV Vaccines (No Doses Required) Completed Pneumococcal Vaccine: Pediatric (0-5 Years) and At-Risk Patients (6 to 49 Years) Aged Out No longer eligible b ased on patient's age to complete this topic Procedures Procedure Name Priority Date/Time Associated Diagnosis Comments POCT RAPID COVID-19 AG (FDA EUA) Routine 11/09/2024 7:26 PM EDT Acute bacterial sinusitis THINPREP PAP(COST RECORDER) HPV SCR RFX HPV 16,18/45 Routine 12/23/2022 11:12 AM EDT from Last 3 Months or Most Recently Relevant to Health Maintenance Results * POCT Rapid COVID-19 Antigen (FDA EUA) (11/09/2024 7:26 PM EDT) COVID-19 Rapid Antigen, POC (FDA EUA) Negative Result Comments: A Positive Result does not rule out bacterial infection or co-infection with other viruses. Clinical correlation advised. A Negative Result in symptomatic patients should be considered presumptive and needs confirmation by PCR. Kit Lot Number [id number] Customer Energy Specialist Pass Pass Swab, Nasal Specimen from nose / Unknown 11/09/2024 7:26 PM EDT Inga Valdivia PA-C POINT OF CARE TEST OR DERABLES Final Result * ThinPrep Pap(Official Court Reporter) HPV Scr Rfx HPV 16,18/45 (12/23/2022 11:12 AM EDT) Report Report [facility] Comment: Final Gynecological Cytology Report ThinPrep Pap Test, HPV Screen, Reflex HPV Genotype SPECIMEN ADEQUACY: SATISFACTORY FOR EVALUATION; ENDOCERVICAL/TRANSFORMATION ZONE COMPONENT ABSENT/INSUFFICIENT . INTERPRETATION: NEGATIVE FOR INTRAEPITHELIAL LESION OR MALIGNANCY. Electronically Signed: Naila Moss CLINICAL INFORMATION: LMP: NG Clinical History: NG Biopsy Date: NG Specimen Source: Cervix, Endocervix Previous Pap Date: NG HPV RESULTS: HPV mRNA E6/E7 [id number] Approved: 12/25/22 Negative REF RANGE: Negative CPT Codes: 08064 ICD Codes: Z01.419 12/23/2022 11:1 2 AM EDT 12/24/2022 5:09 AM EDT Felix Crooks DO LAB AMB PATH/CYTO ORDERAB LES Final Result [facility] [address], [place] from Last 3 Months or Most Recently Relevant to Health Maintenance Insurance [facility] Care Teams Making Department Preparer Relationship Specialty Start Date End Date Sol Atwood MD PCP - General Family Medicine 03/16/23
--- OUTSIDE RECORDS SUMMARY | 2024-12-31 02:52 | XMS_ITS | Clinical Summary ---
Author Organization [facility] [address] Building Address [address] [place] [address] Phone Care Team Providers Care Athletics Teacher Name Role Phone Slo Atwood MD Primary Care Provider Allergies Active Allergy Reactions Criticality Noted Date Comments Fluconazole Rash,Swelling Medium 05/29/2015 Swollen lip Other reaction(s): Rash/Dermatitis Swollen lip Swollen lip Pollen Extracts 08/09/2020 Medications fluticasone propionate (FLONASE) 50 mcg/actuation nasal spray 1 spray. 12/15/19 23 Active diclofenac (VOLTAREN) 1 % topical gel Apply 1-2 g topically 2 times daily as needed. 07/14/19 24 Active cyclobenzaprin e (FLEXERIL) 10 mg tablet Take 1 tablet (10 mg total) by mouth. 10/08/19 21 Active ondansetron (ZOFRAN) 4 mg tablet Take 1 tablet (4 mg total) by mouth every 8 (eight) hours if needed for nausea or vomiting. Active TURMERIC ORAL Take 2,000 mg by mouth. Active tirzepatide 5 mg/0.2 mL syringe Inject under the skin. Active oxyBUTYnin (DITROPAN) 5 mg tablet TAKE 1 TABLET BY MOUTH 1 TIME EACH DAY. 90 tablet 1 12/15/19 25 Active oxyBUTYnin (DITROPAN) 5 mg tablet Take 1 tablet (5 mg total) by mouth 1 (one) time each day. 60 each 1 08/15/19 25 025 Discontinued Active Problems Problem Noted Date Diagnosed Date Elevated serum creatinine 10/03/2024 Urinary frequency 08/14/2024 Achilles tendinitis of left lower extremity 03/2023 Fatty liver 03/24/2022 Gastroesophageal reflux disease without esophagi tis 03/24/2022 Hemangioma of liver 03/24/2022 Obesity (BMI 35.0-39.9 without comorbidity) 10/14 Upper back pain 11/03/2021 Fibromyalgia 03/23/2017 Elevated antinuclear antibody (KRISTIN) level 2016 Overview (11/17/2023): Rheumatology consultation 03/09. No active inflammation seen ?fibromyalgia Hyperhidrosis 02/01/2017 Migraine 05/29/2015 Encounters Date Type Department Care Team Description 10/03/2024 8:30 AM EDT Office Visit [facility] [address] [place] [address] Sol Atwood MD Urinary frequency (Primary Dx); Elevated serum creatinine; Hepatic hemangioma from Last 3 Months Immunizations Immunization Administration Dates Next Due HPV 9-valent (Gardisil) 9yo to less than 46yo 02/01/2017 HPV, Quadrivalent 11/18/2012 Hepatitis B (Vsusqab-C-Bphro , Recombivax HB-Adult) 19yo and older 02/01/2017 Hepatitis B Pediatric (Enger ix B; Recombivax HB) to less than 20 yo 07/04/2018 Influenza Quadravalent, MDCK , 0.5ml, preservative free (Flucelvax) 6mo and older 12/06/2020 Influenza Quadravalent, MDCK , 0.5ml, with preservative (Flucelvax) 6mo and older 01/08/2020 Influenza Quadrivalent, 0.5m l, preservative free (Fluarix; FluLaval; Fluzone) ages 6mo and older (Afluria) 3yo and older 04/07/2022 MMR, measles mumps and rubel la Live (Priorix; M-M-R II) 12mo and older 01/28/2017 Measles 01/28/2017 Mumps 01/28/2017 PPD Test 07/29/2021,02/01/2017,05/29/2015 GutCheck SARS-CoV-2 COVID-19, mRNA, LNP-S, preservative free 04/07/2021,07/20/2020 Rubella 01/28/2017 Tdap Tetanus diptheria acell ular pertussis (Boostrix; Adacel) 7yo and older 02/11/2017 Varicella live (Varivax) 12mo and older 01/29/20 17 Surgical History Surgery Date Site/Laterality Comments SECTION PROCEDURE: SECTION SECTION PROCEDURE: SECTION Medical History Medical History Date Comments Anxiety DX:Anxiety Headache DX:Headache Fibromyalgia 2016 DX:Fibromyalgia Anxiety 2016 DX:Anxiety Family History Medical History Relation Name Comments Diabetes Father Hypertension Mother Cancer Mother's Sister Breast CA Relation Name Status Comments Father Mother Mother's Sister Social History Tobacco Use Types Packs/Day Years Used Date Smoking Tobacco: Never Smokeless Tobacco: Never Alcohol Use Standard Drinks/Week Comments Yes 0 (1 standard drink = 0.6 oz pur e alcohol) Housing Instability Answer Date Recorde d Are you worried that in the next 2 months you may not have stable housing? No 08/13/2024 Food Access & Nutrition Answer Date Rec orded Do you have access to a vari ety of food including fruits and vegetables? Yes 08/13/2024 Access to Healthcare Answer Date Record ed Within the last 3 months, ho w many times did you visit the emergency department for your medical care? 0 08/13/2024 Health Literacy Answer Date Recorded How often do you need to hav e someone help you when you read instructions, pamphlets, or other written material from your doctor or pharmacy? Rarely 08/13/2024 Caregiver: How often do you need to have someone help you when you read instructions, pamphlets, or other written material from your doctor or pharmacy? Not on file 08/13/2024 Financial Risk Answer Date Recorded How hard is it for you to pa y for the very basics like food, housing, medical care, and air conditioning / heating? Not very hard 08/13/2024 Transportation Answer Date Recorded Has the lack of transportati on kept you from meetings, work, or from getting things needed for daily living? No Has the lack of transportati on kept you from medical appointments or from getting medications? No 08/13/2024 Social Isolation Answer Date Recorded How often do you feel lonely or isolated from th ose around you? Rarely 08/13/2024 Food Risk Answer Date Recorded Within the past 12 months we worried whether our food would run out before we got money to buy more. Never true 08/13/2024 Within the past 12 months th e food we bought just didn't last and we didn't have money to get more. Never true 08/13/2024 Dependent Care Answer Date Recorded Do you need help finding or paying for care for your loved ones. For example, child day care teacher or elderly care for an older adult? No 08/13/2024 Education Answer Date Recorded Do you think completing more education or training, like finishing a GED, going to college, or learning a trade, would be helpful for you? No 08/13/2024 Employment and Income Answer Date Recor ded During the last four weeks, have you been actively looking for work? No 08/13/2024 Living Situation Answer Date Recorded What is your living situation? Unrecognized valu e 08/13/2024 Comments Unknown Sex and Gender Information Value Date Recorded Sex Assigned at Not on file Legal Sex Female 5:42 PM EST Gender Identity Not on file Sexual Orientation Not on file Obstetrics History Last Filed Vital Signs Vital Sign Reading Time Taken Comments Blood Pressure 104/64 10/03/2024 8:18 AM EDT manual blood pressure Pulse 61 10/03/2024 8:18 AM EDT Temperature 36.4 C (97.5 F) 10/03/2024 8:18 AM EDT Respiratory Rate - - Oxygen Saturation 98% 10/03/2024 8:1 8 AM EDT Inhaled Oxygen Concentration - - Weight 92.3 kg (203 lb 6.4 oz) 10/03/2024 8:18 AM EDT Height 165.1 cm (5' 5 ) 10/03/2024 8:18 AM EDT Body Mass Index 33.85 10/03/2024 8:18 AM EDT Plan of Treatment Upcoming Encounters Date Type Department Care Team (Late st Contact Info) Description 04/03/2025 3:30 PM EST Office Visit Internal Medicine - [facility] [address] [place] [phone] Sol Atwood MD [address] [place] [address] Health Maintenance Due Date Last Done Comments HPV Vaccines (3 - 3-dose series) 04/26/2017 02/01/2017, 11/18/2012 Hepatitis B Vaccines (2 of 3 - 19+ 3-dose series) 08/01/2018 07/04/2018, 02/01/2017 HIV Screening 02/14/2022 Hepatitis C Screening 02/14/2022 COVID-19 Vaccine (3 - 2024- season) 2024 04/07/2021, 07/20/2020 Influenza Vaccine (#1) 2024 , 12/06/2020, 01/08/2020 Social Influencers of Health Screening 08/13/2025 08/13/2024 DTaP,Tdap,and Td Vaccines (2 - Td or Tdap) 02/11/2027 02/11/2017 Cervical Cancer Screening: HPV 12/29/2027 12/28/2022 Cholesterol Screening (Lipid Panel) 07/21/2029 07/21/2024, 06/01/2023, 06/01/2023, Additional history exists RSV Immunization Adult Patients (1 - 1-dose 75+ series) 07/27/2066 MMR Vaccines Aged Out 01/28/2017 No longer eligi ble based on patient's age to complete this topic Varicella Vaccines Aged Out 01/28/2017 No longer eligible based on patient's age to complete this topic Depression Screening Completed 08/13/2024, 07/14/19 HIB Vaccines Aged Out No longer eligi ble based on patient's age to complete this topic Hepatitis A Vaccines Aged Out No long er eligible based on patient's age to complete this topic IPV Vaccines Aged Out No longer eligi ble based on patient's age to complete this topic Meningococcal ACWY Vaccine Aged Out N o longer eligible based on patient's age to complete this topic Meningococcal B Vaccine Aged Out No l onger eligible based on patient's age to complete this topic Pneumococcal Vaccine: Pediatrics (0 to 5 Years) and At-Risk Patients (6 to 49 Years) Aged Out No longer eligible based on patient's age to complete this topic RSV Immunization Patients Under 20 months Aged Out No longer eligible based on patient's age to complete this topic Procedures Procedure Name Priority Date/Time Associated Diagnosis Comments BASIC METABOLIC PANEL Routine 10/03/2024 9:04 AM EDT Elevated serum creatinine LIPID PANEL Routine 07/21/2024 10:18 AM EDT Encounter for routine adult health examination without abnormal findings HM DEPRESSION SCREENING Routine 07/14/2023 HM HPV Routine 12/28/2022 from Last 3 Months or Most Recently Relevant to Health Maintenance Results * Basic metabolic panel (10/03/2024 9:04 AM EDT) Pathologist [facility] Sodium 138 135 - 145 mmol/L LAB CHEMISTRY METHOD 10/03/2024 11:49 AM EDT [facility] Potassium 4.2 3.5 - 5.1 mmol/L LAB CHEMISTRY METHOD 10/03/2024 11:49 AM EDT [facility] Comment:Slightly to Moderate ly Hemolyzed Chloride 106 98 - 107 mmol/L LAB CHEMISTRY METHOD 10/03/2024 11:49 AM [facility] CO2 25 24 - 32 mmol/L LAB CHEMISTRY METHOD 10/03/2024 11:49 AM T [facility] Anion Gap 7 5 - 14 LAB CHEMISTRY METHOD 10/03/2024 11:49 AM [facility] Glucose 87 70 - 99 mg/dL LAB CHEMISTRY METHOD 10/03/2024 11:49 AM EDT [facility] BUN 17 7 - 17 mg/dL LAB CHEMISTRY METHOD 10/03/2024 11:49 AM EDT [facility] Creatinine 1.00 0.50 - 1.00 mg/dL LAB CHEMISTRY METHOD 10/03/2024 11:49 AM [facility] eGFR 76 >=60 mL/min/1. 73m2 LAB CHEMISTRY METHOD 10/03/2024 11:49 AM T [facility] Comment:Calculation based on the Chronic Kidney Disease Epidemiology Collaboration (CKD-EPI) equation refit without adjustment for race. BUN/Creatinine Ratio 17.0 12.0 - 20.0 LAB CHEMISTRY METHOD 10/03/2024 11:49 AM EDT [facility] Calcium 9.2 8.4 - 10.2 mg/dL LAB CHEMISTRY METHOD 10/03/2024 11:49 AM EDT [facility] Blood Venous blood specimen / Unknown Venipuncture / Unknown 10/03/2024 9:04 AM EDT 10/03/2024 9:10 AM EDT us Sol Atwood MD LAB BLOOD ORDERABLES Final Result [facility] [address] [place] [address], [place] [phone] * Lipid panel (07/21/2024 10:18 AM EDT) [facility] Signature Cholesterol 140 0 - 200 mg/dL LAB CHEMISTRY METHOD 07/21/2024 2:51 PM EDT [facility] Triglycerides 84 <150 mg/dL LAB CHEMISTRY METHOD 07/21/2024 2:51 PM EDT [facility] HDL 42 35 - 80 mg/dL LAB CHEMISTRY METHOD 07/21/2024 2:51 PM EDT [facility] LDL Calculated 81 50 - 130 mg/dL LAB CHEMISTRY METHOD 07/21/2024 2:51 PM EDT [facility] VLDL Cholesterol Ethan 16.8 mg/dL LAB CHEMISTRY METHOD 07/21/2024 2:51 PM EDT [facility] Comment:No established refer ence range. Blood Venous blood specimen / Unknown Venipuncture / Unknown 07/21/2024 10:18 AM EDT 07/21/2024 10:18 AM EDT us Sol Atwood MD LAB BLOOD ORDERABLES Final Result [facility] [address] [place] [address], [place] [phone] * Depression Screening (07/14/2023) Depression Screening Abstracted Historical Provider HEALTH MAINTENANCE Final Result * Cervical Cancer Screening: HPV (12/28/2022) Cervical Cancer Screening: HPV No interpreta tion,abstr acted Historical Provider HEALTH MAINTENANCE Final Result from Last 3 Months or Most Recently Relevant to Health Maintenance Insurance MEDICAID - [place] Care Teams Athletics Teacher Relationship Specialty Start Date End Date Sol Atwood MD [address] [place] [address] PCP - General 06/13/21
--- OUTSIDE RECORDS SUMMARY | 2024-12-31 02:52 | XMS_ITS | Data Portability ---
Author Organization [place] - [facility], [facility] Address [address] [place] [address] Care Team Providers Care Credit Risk Modeler Name Role Phone YEE PEARCE Primary Care Provider Assessment No assessment recorded. Plan of Treatment Reminders Order Date Submit Date Provider Last Modified By Organization Details Last Modified Time Details Appointments None record ed. Lab pap, IG + HPV 023 12/24/19 [facility], [address] [place], [address] 3 17:50:02 Referral None record ed. Procedures None record ed. Surgeries None record ed. Imaging None record ed. Medication Orders None record ed. Patient TargetsNo targets recorded. Patient Instructions Encounter Date Encounter Id Patient Instructions Last Modified By Organization Details Last Modified Time 12/23/2022 [id number] tips to help you stay healthy [email or web address] Not available 12/23/2022 11:19:16 [facility] screening completed and reviewed with patient. Negative findings. [email or web address] Not available 12/23/2022 11:34:06 Reason for Referral None Reported. Results Created Date Observation Date Name Description Value Unit Range Abnormal Flag Note LastModifiedBy Organization Detail LastModifiedTime 12/24/19 23 12/23/2022 THINP REP PAP TEST (IMAG ER), HPV SCREE N, REFLE X HPV 16,18 /45 report Report Final Gynec ologi sarmad Cytol ogy Repor t ----- ----- ----- ----- ----- ----- ----- ----- ----- ----- ----- ----- ThinP rep Pap Test, HPV Scree n, Refle x HPV Genot ype SPECI MEN ADEQU ACY: SATIS FACTO RY FOR EVALU ATION ; ENDOC ERVIC AL/TR ANSFO RMATI ON ZONE COMPO NENT ABSEN T/INS [facility] IENT . INTER PRETA TION: NEGAT DOROTHY FOR INTRA EPITH ELIAL LESIO N OR LUIS MTITO PURCELL . Elect ashwini Burris d: Naila Arnold ----- ----- ----- ----- ----- ----- ----- ----- ----- ----- ----- ----- CLINI SARMAD INFOR MATIO N: LMP: NG Clini sarmad Histo ry: NG Biops y Date: NG Speci men Sourc e: Cervi x, Endoc ervix Previ ous Pap Date: NG HPV RESUL TS: HPV mRNA E6/E7 [id number] Appro kenny: 12/25 Negat dorothy REF RANGE : Negat dorothy CPT Codes : 40446 ICD Codes : Z01.4 19 Not Available [facility] [address], [place], [facility] [place] 12/28/2022 17:50:02 12/24/1912/23/2022 HPV MRNA E6/E7 HPV MRNA E6/E7 Negati ve negati ve APTIM A HPV assay detec ts 14 high risk HPV types (HPV 16,18 ,31,3 3,35, 39,45 ,51,5 2,56, 58,59 ,66,6 8). The assay is FDA appro kenny for testi ng ThinP rep liqui d Pap vials but not FDA appro kenny for detec ting HPV in SureP ath liqui d Pap speci mens. In-ho use valid ation has shown the assay can detec t all HPV types from this sour e Not Available [facility] [address] [place], [address] 12/28/2022 17:50:05 Result Notes None recorded. Medical Equipment None Reported. Allergies Allergen ID Allergen Name Allergen Category Reaction Reaction Severity Criticality Documentation Date Start Date Code Code System Note Provider Name and Address Organization Details Recorded Time [id number] Diflucan medicatio n Not available Not available Not available 12/23/2022 3 RxNorm Lilian Millan null, [place] - [facility] 3 11:09:12 Medications Name Sig Start Date Stop Date Status Note LastModified by Organization Details LastModified Time amoxicillin 500 mg capsule TAKE 1 CAPSULE BY MOUTH TWICE A DAY 12/23 completed Not Available Not Available Not Available azithromyci n 250 mg tablet TAKE 2 TABLETS BY MOUTH TODAY, THEN TAKE 1 TABLET DAILY FOR 4 DAYS 12/23 completed Not Available Not Available Not Available prednisone 20 mg tablet TAKE 2 TABLETS BY MOUTH EVERY DAY WITH FOOD 12/23 completed Not Available Not Available Not Available ofloxacin 0.3 % ear drops PLACE 10 DROPS INTO THE LEFT EAR 2 (TWO) TIMES A DAY. 12/23 completed Not Available Not Available Not Available pantoprazol e 40 mg tablet,emmett yed release TAKE 1 TABLET BY MOUTH EVERY DAY 12/23 completed Not Available Not Available Not Available montelukast 10 mg tablet TAKE 1 TABLET BY MOUTH DAILY FOR 7 DAYS 12/23 completed Not Available Not Available Not Available azelastine 137 mcg (0.1 %) nasal spray SPRAY OR APPLY 2 SPRAYS INSIDE NOSE 2 (TWO) TIMES A DAY. USE IN EACH NOSTRIL DIRECTED 12/23 completed Not Available Not Available Not Available levofloxaci n 750 mg tablet TAKE 1 TABLET BY MOUTH EVERY DAY FOR 7 DAYS 12/23 completed Not Available Not Available Not Available fluticasone propionate 50 mcg/actuati on nasal spray,suspe nsion SPRAY/MARISELA LY 1 SPRAY IN EACH NOSTRIL DAILY. active Not Available Not Available No t Available amoxicillin 875 mg-potassiu m clavulanate 125 mg tablet TAKE 1 TABLET BY MOUTH TWICE A DAY 12/23 completed Not Available Not Available Not Available Ventolin HFA 90 mcg/actuati on aerosol inhaler INHALE 2 INHALATIO NS INTO THE LUNGS 4 (FOUR) TIMES A DAY NEEDED. 12/23 completed Not Available Not Available Not Available Vitals Date Recorded Body height Body mass index (BMI) Body weight Systolic And Diastolic Provider Name and Address Organization Details Last Updated DateTime 12/23/2022 165.1 cm 34.9 kg/m2 74450.4 g 110/80 mm[Hg] Lilian Millan [place] [facility] 12/23/2022 11:08:16 Social History Question Answer Notes LastModified by Organizat ion Details LastModified Time In The 14 Days Before Symptom Onset, Have You Had Close Contact With A Laboratory-confirmed COVID-19 While That Case Was Ill? No [email or web address] Information not available 12/23/2022 In The 14 Days Before Symptom Onset, Have You Had Close Contact With A Person Who Is Under Investigation For COVID-19 While That Person Was Ill? No Information not available 12/23/2022 Have You Been To An Area Known To Be High Risk For COVID-19? No [email or web address] Information not available 12/23/2022 Do You Reside In Or Have You Traveled To An Area Where Ebola Virus Transmission Is Active? No [email or web address] Information not available 12/23/2022 Have You Recently Or Are You Planning To Travel To An Area With Zika Virus? No [email or web address] Information not available 12/23/2022 Do You Have Any Children? Yes [email or web address] Information not available 12/23/2022 Does Your Partner Physically Hurt You Or Threaten To Hurt You? No [email or web address] Information not available 12/23/2022 Has Your Partner Forced You To Have Sex Or Perform Sex Acts When You Did Not Want To? No [email or web address] Information not available 12/23/2022 Does Your Partner Insult, Scream At Or Talk Down To You? No Information no t available 12/23/2022 Does Your Partner Control You Or Any Part Of Your Life? No Information n ot available 12/23/2022 Are You Afraid Of Your Partner? No [email or web address] Information not available 12/23/2022 Drug Use? No [email or web address] Information no t available 12/23/2022 Do You Feel Safe At Home? Yes [email or web address] Information not available 12/23/2022 Are You Sexually Active? No [email or web address] Information not available 12/23/2022 Have You Recently Traveled Abroad? No [email or web address] Information not available 12/23/2022 Sex: Unknown Functional Status Question Answer Note LastModified by Organization D etails LastModified Time Are you currently employed? Yes [email or web address] Information not available 12/23/2022 Mental Status None recorded. Family History Nothing Reported. Medical History No medical history recorded. Gynecological History Statement/Question Response Current Control Method None Date of LMP 12/20/2022 Pap Required? Y IPV Screen Done 12/23/2022 Obstetrics History GPAL:G 0 P 0 0 0 0 Past Encounters Encounter ID Performer Location Encounter Start Date Encounter Closed Date Diagnosis/Indication Diagnosis SNOMED-CT Code Diagnosis ICD10 Code Diagnosis IMO Codes Diagnosis Note [id number] ALAINA GHOSH , [facility] [address] [place] [address] 12/23/2022 10:46:21 12/23/2022 11:38:14 Gynecologic examination 23259061 Z01.419 Routine annual examHealth maintenanc e issues reviewedNo rmal clinical pelvic examNormal clinical breast examPap: Pap smear todayMense s: regular q monthContr aception: none; options reviewed, none desiredMam mogram: age 41, sooner as neededCOVI D discussedV accination s reviewedCo ntinue with yearly annual exams Depression screening 171 965772 Z13.31 Health Concerns Section Related Observation LastModified by Organization Detai ls LastModified Time None Recorded Concern Status LastModified by Organization Details LastModified Time None Recorded Advance Directives Directive None Recorded Payers Insurance Date Sequence Insurance Name Policy Number Policy Harman Covered Member ID Harman Member ID Guarantor Name 12/20/2022 1 [place] Jayda Pelayo [id number] Jayda Pelayo Notes Date Note Type Note Provider Name and Address Organization Details Recorded Time 3 text/html [facility] Annual GYNReported by PatientGenitourinary symptomsFor menstrual cycle, patient reportsnormal menses. For urinary symptoms, patient reportsno hematuriaandno incontinence. For vulva, patient reportsno genital lesion. For vagina, patient reportsnormal vaginal discharge.Breast symptomsFor breast, patient reportsno breast pain,no breast lump, andno nipple discharge.Endocrine symptomsFor sexual activity, patient reportsno sexual complaints,no pain during intercourse, andnormal libido. For menopausal symptoms, patient reportsno menopausal symptomsandnormal vaginal lubrication.Psychological symptomsFor psychological symptoms, patient reportsno depression,no anxiety, andno pmdd.ROS as noted in the HPI ALAINA GHOSH, DO [address] [facility], [place], [address], [place] [facility] 12/23/2022 11:35:10 OBGyn Episode No OBEpisode recorded.
[2024-12-31 03:01] LABS: Hematocrit 38.6 % (37.0-47.0); Hemoglobin 12.6 g/dl (12.0-16.0); Imm Gran Abs Auto 0.03 X10*3/uL (0.00-0.03); Imm Gran Pct Auto 0.5 % (0.0-0.4); Lymphocytes Absolute Auto 2.4 X10*3/uL (1.2-4.9); MANUAL DIFF FLAG NO; Mean Corpuscular HGB Conc 32.6 g/dl (31.0-35.0); Mean Corpuscular Hemoglobin 28.7 pg (27.0-33.0); Mean Corpuscular Volume 87.9 fL (80.0-98.0); NRBC Abs Auto 0.000 X10*3/uL (0.0-0.012); NRBC Pct Auto 0.0 /100WBC (0.0-0.2); Platelet Count 190 X10*3/uL (160-400); Red Blood Count 4.39 X10*6/uL (4.20-5.50); White Blood Count 6.5 X10*3/uL (4.8-10.8)
[2024-12-31 03:18] LABS: Alanine Aminotransferase 48 U/L (0-31); Albumin Level 4.1 g/dL (3.5-5.0); Alkaline Phosphatase 89 U/L (39-117); Anion Gap 13 (12-20); Aspartate Amino Transferase 33 U/L (5-31); Blood Urea Nitrogen 13 mg/dL (9-16); Calcium 8.9 mg/dL (8.4-10.2); Carbon Dioxide 22 mmol/L (22-29); Chloride 109 mmol/L (96-108); Creatinine Clr Calc Pharmacy 100.1; Estimated Glomerular Filt Rate > 60; Potassium 3.7 mmol/L (3.3-5.1); Sodium 140 mmol/L (135-145); Total Protein 6.8 g/dL (6.5-8.0)
[2024-12-31 03:28] LABS: Troponin-I High Sensitivity < 2.7 ng/L (<3.5-17.0)
--- NOTE | 2024-12-31 04:38 | ED_ITS ---
HPI - Chest Pain General Chief Complaint: Chest Pain Stated Complaint: CP Time Seen by Provider: 12/31/24 03:03 Source: patient Mode of arrival: ambulatory Limitations: no limitations History of Present Illness ED Provider: Dr. Kathy Wynne HPI narrative: 34-year-old female with no significant past medical history presenting with left-sided chest pain radiating to her back ongoing since about 11:00 p.m. tonight. Describes a sharp pain in her left chest, particularly with deep breaths and movement. Denies associated shortness of breath, nausea, vomiting, fever, lower extremity edema or pain. Family history of early onset heart disease in her onto had her 1st heart attack at age 31. No history of sudden cardiac or clotting disorders. The patient does not take oral contraceptives. Denies recent illness including fevers or chills, cough or cold-type symptoms, abdominal pain, bowel changes or urinary complaints. 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 Related Data Previous Rx's ?Medication ?Instructions ?Recorded azithromycin 250 mg tablet See Rx Instructions PO .COM PLEX 12/15/20 upper resp infection #6 tabs benzonatate 100 mg capsule 100 mg PO TID #20 caps 06/02 (Tessalon Perles) diazepam 2 mg tablet (Valium) 2 mg PO TID PRN muscle s pasm #10 12/31/24 tabs diazepam 2 mg tablet (Valium) 2 mg PO TID PRN muscle s pasm 3 01/02/25 days #10 tabs Allergies Allergy/AdvReac Type Severity Reaction Status Date / Time fluconazole (From Diflucan) Allergy Swelling Verified 12/31/24 02:47 Review of Systems 2 Review of Systems: as per HPI, full review of systems performed and negative but for the above mentioned pertinent positives and negatives. Physical Exam 2 Exam: Exam: GENERAL: Well-Appearing, conversant, no acute distress. SKIN: Normal skin color for ethnicity, warm, dry, no rashes noted. HEENT: Normocephalic, atraumatic, no stridor, posterior oropharynx nonerythematous, dentition intact, EOMI. NECK: Soft, supple, full ROM, midline structures nontender, no step-offs, no deformities, no lymphadenopathy. CHEST: Heart regular tachycardia, no murmurs, symmetric chest rise and fall, no tenderness of palpation, no crepitus. PULMONARY: Clear to auscultation bilaterally, no labored breathing, no wheezes/rhales/rhonchi. ABDOMINAL: Soft, nondistended, nontender, positive bowel sounds in all quadrants. : Deferred. MUSCULOSKELETAL: Normal tone, full range of motion, no deformities, no peripheral edema. NEURO: Alert and oriented x3, CN II through XII intact, equal strength and sensation bilateral upper and lower extremities, no focal neurologic deficits. PSYCHIATRIC: Normal affect, fluid speech, good eye contact and appropriate demeanor. Vital Signs: Vital Signs: Last Vital Signs Temp 98.7 F 12/31/24 06:40 Pulse 70 12/31/24 06:40 Resp 16 12/31/24 06:40 BP 103/55 L 12/31/24 06:40 Pulse Ox 98 12/31/24 06:40 O2 Del Method Room Air 12/31/24 06:40 BMI result Body Mass Index 32.6 Medications Administered Discontinued Medications Generic Name Dose Route Start Last Admin Trade Name Jerelq PRN Reason Stop Dose Admin Lactated Ringer's 1,000 mls @ 999 mls/hr 12/31/24 04:33 12/31/24 06:26 Lr IV 12/31/24 05:33 Infused .Q1H1M ONE Infusion Ketorolac Tromethamine 15 mg 12/31/24 04:33 12/31/24 04:51 Ketorolac Tromethamine 15 Mg/Ml Vial IVPUSH 12/31/24 04:34 15 mg ONCE ONE Administration Medical Decision Making Medical Decision Making [facility] Narrative: 34-year-old female with no significant past medical history presenting with left-sided chest pain radiating to her back [facility] Differential diagnosis includes, but is not limited to, acute coronary syndrome, musculoskeletal pain, pneumothorax, GERD, pleurisy, pulmonary embolism, dissection, among others. I will order EKG, chest x-ray, laboratory workup including cardiac enzymes to further evaluate for etiology. Unable to PERC out due to a heart rate over 100. She has elevated heart rate even with just minor movement in the bed. Could be dehydration but also can not rule out PE. We will add on a D-dimer. Medicated with Toradol for pain. Added a L of fluid in case she is dehydrated. 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 She is nontoxic with a normal oxygen level on room air. D-dimer is negative. Patient resting comfortably. We will send muscle relaxer to the pharmacy. Using shared decision making, plan for discharge home to follow-up with primary care and/or specialist. Patient understands and agrees with plan for discharge. Discharged home in stable condition. Differential Diagnosis Differential Diagnoses: The differential diagnosis associated with the presentation includes (As above) Admission/Observation Consideration of admission/observation: Escalation of care including admission/observation considered Lab Data MDM Lab Attestation statement: I reviewed the patient's lab results. 12/31/24 02:55 12/31/24 02:55 Labs: Lab Results 12/31/24 12/31/24 Range/Units 02:55 04:47 WBC 6.5 (4.8-10.8) X10*3/uL RBC 4.39 (4.20-5.50) X10*6/uL Hgb 12.6 (12.0-16.0) g/dl Hct 38.6 (37.0-47.0) % MCV 87.9 (80.0-98.0) fL MCH 28.7 (27.0-33.0) pg MCHC 32.6 (31.0-35.0) g/dl RDW 13.7 (11.0-16.0) % Plt Count 190 (160-400) X10*3/uL MPV 10.3 (9.4-12.3) fL Immature Gran % (Auto) 0.5 H (0.0-0.4) % Neut % (Auto) 52.9 (45-73) % Lymph % (Auto) 36.3 (20-40) % Bracken % (Auto) 8.8 (2-11) % Eos % (Auto) 1.2 (0-4) % Baso % (Auto) 0.3 (0-2) % Lymph # (Auto) 2.4 (1.2-4.9) X10*3/uL Bracken # (Auto) 0.6 (0.1-1.2) X10*3/uL Eos # (Auto) 0.1 (0.0-0.4) X10*3/uL Baso # (Auto) 0.0 (0.0-0.2) X10*3/uL Abs Immat Gran (auto) 0.03 (0.00-0.03) X10*3/uL Absolute Neuts (auto) 3.4 (2.0-8.3) x10*3/uL Absolute Nucleated RBC 0.000 (0.0-0.012) X10*3/uL Nucleated RBC % (auto) 0.0 (0.0-0.2) /100WBC D-Dimer High Sensitivty < 150 NG/ML Sodium 140 (135-145) mmol/L Potassium 3.7 (3.3-5.1) mmol/L Chloride 109 H (96-108) mmol/L Carbon Dioxide 22 (22-29) mmol/L Anion Gap 13 (12-20) BUN 13 (9-16) mg/dL Creatinine 0.88 (0.5-1.4) mg/dL Estim Creat Clear Calc 100.1 Estimated GFR > 60 Random Glucose 100 (60-115) mg/dL Calcium 8.9 (8.4-10.2) mg/dL Total Bilirubin 0.2 (0.0-1.0) mg/dL AST 33 H (5-31) U/L ALT 48 H (0-31) U/L Alkaline Phosphatase 89 (39-117) U/L Troponin I High Sens < 2.7 < 2.7 (<3.5-17.0) ng/L Total Protein 6.8 (6.5-8.0) g/dL Albumin 4.1 (3.5-5.0) g/dL Independent Interpretation I performed an independent interpretation of an: EKG and Plain X-Ray Interpretation: My independent interpretation of the chest x-ray reveals no consolidations, pulmonary edema, pleural effusion, pneumothorax, obvious bony abnormalities. 0248 AM 12/31/2024 (Dr. Kathy Wynne, D.O.) My independent interpretation of the ECG reveals normal sinus rhythm with rate of 62, normal axis, normal intervals, no ST elevations or depressions to suggest ischemic changes, relatively unchanged from previous on 12/15/2020. Radiology Impression Discussion of test interpretation with radiology: I have reviewed the radiologist's reading. Discharge Plan Discharge Clinical Impression: Acute chest pain, Costalchondritis Patient Disposition: Home, Self-Care Instructions: Chest Wall Pain (ED) Additional Instructions: DIAGNOSIS & TREATMENT: You were seen in the Emergency Department for your chest discomfort. We performed an EKG, laboratory work and chest xray which did not reveal any acute abnormalities that would explain your symptoms. You have been prescribed Valium for muscle relaxation. Do not take this medication if you need to drive. It can make you drowsy. Try to rest as much as possible over the next several days. FURTHER CARE: We have not found any emergent physical exam or lab abnormalities that would require admission to the hospital today. Many people who come to the ER with chest discomfort do not leave with a specific diagnosis at the end of their visit. In the Emergency Department we try to make sure that there is no emergent problem that needs admission to the hospital or antibiotics right now. This does not mean that your evaluation is complete--please be sure to follow up with your regular doctor as additional testing as an outpatient may be indicated. Please be certain to drink plenty of fluids over the next several days. WHEN YOU SHOULD BE SEEN NEXT: Please follow-up with your primary care provider within the next 2-3 days for reevaluation of your symptoms. WHEN TO RETURN TO THE ED: Monitor your symptoms closely and return to the emergency department immediately for any new/worsening symptoms including: Worsening chest pain, difficulty breathing, fevers greater than 100 degrees, passing out, any new symptom that concerns you. Call 911 with any medical emergency. Prescriptions: New diazepam [Valium] 2 mg tablet 2 mg PO TID PRN (Reason: muscle spasm) Qty: 10 0RF diazepam [Valium] 2 mg tablet 2 mg PO TID PRN (Reason: muscle spasm) 3 Days Qty: 10 0RF No Action azithromycin 250 mg tablet See Rx Instructions .ROUTE .COMPLEX Qty: 6 0RF Rx Instructions: take 500 mg today (day 1), then 250 mg for 4 days (days 2-5) benzonatate [Tessalon Perles] 100 mg capsule 100 mg PO TID Qty: 20 0RF Interventions: ED Discharge Assessment Last Done: 12/31/24 06:40 Discharge Date/Time: 12/31/24 06:41 Print Language: Choose Not To Answer
[2024-12-31] MEDS: Lactated Ringers 1,000 ML 999 ML IV (04:48)
--- NOTE | 2024-12-31 04:57 | PC.NURSE ---
pt medicated per MAR.
[2024-12-31 05:07] LABS: D Dimer High Sensitivity < 150 NG/ML
[2024-12-31 05:12] LABS: Troponin-I High Sensitivity < 2.7 ng/L (<3.5-17.0)
[2024-12-31 06:05] VITALS: BP 103/55; PULSE 70; RESP 16; TEMP 37.1; O2SAT 98
[2024-12-31 06:40] VITALS: BP 103/55; PULSE 70; RESP 16; TEMP 37.1; O2SAT 98
== END 2024-12-31 06:41 | disposition home or self-care (01) ==
PROVIDERS: Emergency Provider Emergency Medicine; PCP Internal Medicine
DX: R07.9 Chest pain, unspecified (principal); M94.0 Chondrocostal junction syndrome [Tietze]; R06.02 Shortness of breath
CPT/HCPCS: 36415; 71045; 80053; 84484; 85025; 85379; 93005; 96361; 96374; 99284; 99285; J1885; J7120

== ENCOUNTER → 2024-12-31 02:48 | Outpatient (BNV) | payer MEDICAID, SELFPAY | PROVIDERS: Emergency Provider Emergency Medicine; PCP Internal Medicine; Visit Provider Internal Medicine Cardiovascular Disease | DX: R07.89 Other chest pain (principal) | CPT/HCPCS: 93010 ==

== ENCOUNTER → 2024-12-31 02:57 | Outpatient (BNV) | payer MEDICAID, SELFPAY | PROVIDERS: Emergency Provider Emergency Medicine; PCP Internal Medicine; Visit Provider Specialist | DX: R06.02 Shortness of breath (principal) | CPT/HCPCS: 71045 ==

== ENCOUNTER → 2025-01-04 13:37 | Outpatient (BNVA) | payer OTHER, SELFPAY | PROVIDERS: PCP Internal Medicine; Visit Provider Emergency Medicine | DX: Z13.89 Encounter for screening for other disorder (principal) | CPT/HCPCS: 99202 ==

== ENCOUNTER → 2025-01-08 11:06 | Outpatient (BNVA) | payer OTHER, SELFPAY | PROVIDERS: PCP Internal Medicine; Visit Provider Emergency Medicine | DX: Z13.89 Encounter for screening for other disorder (principal) | CPT/HCPCS: 99213 ==